=== PATIENT | male | born 1985 | race Two or more races ===

== ENCOUNTER 2018-12-22 22:31 | Emergency (ER) | payer SELFPAY ==
[~2018-12-22] VITALS: Ht 175.3 cm; Wt 77.1 kg
[~2018-12-22 22:31] MED LIST: INSUPOW; enalapril
[2018-12-22 23:18] LABS: Basophils # (auto) 0.1 uL; Basophils % (auto) 1.1 % (0.0-2.0); Eosinophils # (auto) 0.3 uL; Eosinophils % (auto) 3.1 % (0.0-7.0); Hematocrit 48.4 % (41.0-53.0); Hemoglobin 16.4 g/dL (13.5-17.5); Lymphocytes # (auto) 2.4 uL; Mean Corpuscular Hemoglobin 29.5 pg (28.0-32.0); Mean Corpuscular Hgb Conc. 33.8 g/dL (32.0-36.0); Mean Corpuscular Volume 87.3 fL (80.0-100.0); Monocytes # (auto) 0.4 uL; Monocytes % (auto) 4.6 % (0.0-12.0); Neutrophils # (auto) 5.5 uL; Neutrophils % (auto) 63.2 % (37.0-80.0); Platelet Count (auto) 313 10^3/uL (140-450); Red Blood Cells 5.54 10^6/uL (4.5-5.90); Red Cell Distribution Width 13.8 % (11.8-14.3); White Blood Cell 8.7 10^3/uL (4.4-10.8)
[2018-12-22 23:50] LABS: Alanine Aminotransferase 46 U/L (16-61); Albumin 3.4 g/dL (3.4-5.0); Anion Gap 12 (5-15); Aspartate Aminotransferase 22 U/L (15-37); Blood Urea Nitrogen 22 mg/dL (7-18); Calcium 8.5 mg/dL (8.5-10.1); Carbon Dioxide 23 mmol/L (21-32); Chloride 97 mmol/L (98-107); GFR African American 105 mL/min; GFR Non-African American 87 mL/min; Potassium 4.6 mmol/L (3.5-5.1); Sodium 132 mmol/L (136-145)
[2018-12-23 00:01] LABS: Alkaline Phosphatase 84 U/L (45-117); Bilirubin, Total 0.4 mg/dL (0.2-1.0); Total Protein 7.3 g/dL (6.4-8.2)
[2018-12-23 00:04] LABS: Glucose 472 mg/dL (74-106)
[2018-12-23] MEDS ORDERED: SODIUM CHLORIDE 0.9% 1,000 ML IVB ONE (00:43)
[2018-12-23] MEDS ORDERED: InsuLIN REG 1unit/0.01ml Soln (100units/ml) IV ONE ×2 (00:45→01:45)
[2018-12-23 01:08] LABS: Urine Bacteria NONE SEEN /hpf (None Seen); Urine Blood Negative /uL (Negative); Urine Specific Gravity 1.033 (1.001-1.035); Urine WBC 1 /hpf (0 - 3)
[2018-12-23] MEDS ORDERED: SODIUM CHLORIDE 0.9% 1,000 ML IV ONE (01:45)
[2018-12-23 02:00] VITALS: BP 136/88
== END 2018-12-23 04:00 | disposition home or self-care (01) ==
LOC: ER 22:32
DX: E10.65 Type 1 diabetes mellitus with hyperglycemia (principal); I10 Essential (primary) hypertension; F12.10 Cannabis abuse, uncomplicated; F15.10 Other stimulant abuse, uncomplicated; Z79.4 Long term (current) use of insulin
CPT/HCPCS: 36415; 36600; 71045; 80053; 81001; 82010; 82150; 82805; 82962; 83036; 83690; 83735; 84484; 85025; 96374; 96375